=== PATIENT | female | born 1945 | race Caucasian/White ===

== ENCOUNTER 2019-04-16 17:54 | Inpatient (IN) ==
[2019-04-16] MEDS ORDERED: Ipratropium/Albuterol Neb 3 ML IH ONE (18:05)
[2019-04-16] MEDS ORDERED: methylPREDNISolone 125 MG/2 ML VIAL IVP ONE (18:05)
[2019-04-16] MEDS ORDERED: 0.9 % Sodium Chloride 500 ML IVC ONE ×2 (18:06→18:44)
--- NOTE | 2019-04-16 18:07 | Emergency Department Note ---
Disposition Clinical Impression: Transient hypotension Disposition: Still a Patient General Adult HPI - General Stated complaint: AMS Time Seen by Provider: 04/16/19 18:03 Source: patient, EMS Mode of arrival: EMS Limitations: no limitations Nursing Notes Reviewed: Yes Vital Signs Reviewed: Yes - History of Present Illness HPI Narrative: Attestation note: Patient was seen with the emergency medicine resident/nurse practitioner/physi annalisa physical therapy assistant instructor/transitional resident/medical student: Dr. Seth Mckeon I have personally performed a face to face evaluation on this patient. I have reviewed and agree with history and physical examination patient management and disposition. Briefly the salient points of the case are as follows: 73-year-old female resident of local prison facility brought in for "altered mental status and "low blood pressure and decreased ability care for self premenstrual (systolic was as low as 67 however when it was rechecked here was in the 130s. Patient is awake and alert tired but not somnolent appropriately answering questions and following commands. Patient will undergo ED workup looking for source of infection with admission anticipated. Disposition pending. - Related Data Home Medications Medication Instructions Recorded Confirmed Amlodipine [Norvasc] 5 mg PO DAILY 11/17/15 10/19/16 Ascorbic Acid [Vitamin C] 500 mg PO DAILY 11/17/15 10/19/16 Aspirin Enteric Coated [Aspirin EC] 81 mg PO DAILY 11/17/15 10/19/16 GlipiZIDE [Glucotrol] 10 mg PO DAILY 11/17/15 10/19/16 Levothyroxine [Synthroid] 50 mcg PO DAILY 11/17/15 10/19/16 Omeprazole [PriLOSEC] 20 mg PO DAILY 11/17/15 10/19/16 Potassium Chloride [Klor-Con 10 meq PO QID 11/17/15 10/19/16 Sprinkle] Raloxifene [Evista] 60 mg PO DAILY 11/17/15 10/19/16 Simvastatin [Zocor] 20 mg PO DAILY 11/17/15 10/19/16 Valsartan [Diovan] 80 mg PO DAILY 11/17/15 10/19/16 Venlafaxine HCl [Effexor Xr] 150 mg PO DAILY 11/17/15 10/19/16 Insulin Glargine [Lantus] 50 unit SQ HS 10/19/16 10/19/16 Previous Rx's Medication Instructions Recorded Oxycodone HCl/Acetaminophen 1 tab PO Q4H PRN #15 11/20/15 [Percocet 10-325 mg Tablet] clonazePAM [Klonopin] 2 mg PO HS #30 11/20/15 Insulin LISPRO [HumaLOG] 0 units SQ TIDAC #1 vial 07/02/16 Furosemide [Lasix] 40 mg PO BID #0 10/19/16 LORazepam [Lorazepam] 2 mg PO TID #1 tablet 10/19/16 Metoprolol [Lopressor] 25 mg PO BID tablet 10/19/16 Nitrofurantoin (BID) [Macrobid] 100 mg PO BID #14 capsule 03/24/17 Phenazopyridine HCl [Pyridium] 200 mg PO TID PRN #21 tablet 03/24/17 Allergies Allergy/AdvReac Type Severity Reaction Status Date / Time latex Allergy Rash Verified 10/18/16 12:13 Past Medical History - Past Medical History Medical history: Reports: COPD, coronary artery disease, diabetes, hyperlipidemia, hypertension, other Surgical history: Reports: hysterectomy, orthopedic, other Psychiatric history: Reports: no psych history - Social History Smoking Status: Never smoker Smokeless Tobacco Status: No Alcohol use: Reports: none Drug use: Reports: none
--- NOTE | 2019-04-16 18:31 | Emergency Department Note ---
Disposition Clinical Impression: Transient hypotension, Acute kidney injury, Pyelonephritis Disposition: Admitted As Inpatient Condition: Fair Forms: ED Satisfaction Letter Time of Disposition: 20:51 General Adult HPI - General Chief complaint: ED Shortness of Breath/Dyspnea Stated complaint: AMS Time Seen by Provider: 04/16/19 18:03 Source: patient, EMS Mode of arrival: EMS Limitations: no limitations Nursing Notes Reviewed: Yes Vital Signs Reviewed: Yes - History of Present Illness HPI Narrative: 73-year-old female presents to the emergency department from nursing facility for possible hypoxia difficulty in breathing low blood pressure and altered men ayah status. EMS said that they got a blood pressure in the 60s said that she seemed to be altered and so brought her here. Patient is not a fever. We will evaluate her patient is alert and oriented says she had a cough and congestion does have history of COPD. Patient says she has had cough and congestion. Said that she does have some neck pain but is been chronic for her. She does have any acute other signs of pain at this time. No other complaints. Pain Scale: 0 - Related Data Home Medications Medication Instructions Recorded Confirmed Amlodipine [Norvasc] 5 mg PO DAILY 11/17/15 10/19/16 Ascorbic Acid [Vitamin C] 500 mg PO DAILY 11/17/15 10/19/16 Aspirin Enteric Coated [Aspirin EC] 81 mg PO DAILY 11/17/15 10/19/16 GlipiZIDE [Glucotrol] 10 mg PO DAILY 11/17/15 10/19/16 Levothyroxine [Synthroid] 50 mcg PO DAILY 11/17/15 10/19/16 Omeprazole [PriLOSEC] 20 mg PO DAILY 11/17/15 10/19/16 Potassium Chloride [Klor-Con 10 meq PO QID 11/17/15 10/19/16 Sprinkle] Raloxifene [Evista] 60 mg PO DAILY 11/17/15 10/19/16 Simvastatin [Zocor] 20 mg PO DAILY 11/17/15 10/19/16 Valsartan [Diovan] 80 mg PO DAILY 11/17/15 10/19/16 Venlafaxine HCl [Effexor Xr] 150 mg PO DAILY 11/17/15 10/19/16 Insulin Glargine [Lantus] 50 unit SQ HS 10/19/16 10/19/16 Previous Rx's Medication Instructions Recorded Oxycodone HCl/Acetaminophen 1 tab PO Q4H PRN #15 11/20/15 [Percocet 10-325 mg Tablet] clonazePAM [Klonopin] 2 mg PO HS #30 11/20/15 Insulin LISPRO [HumaLOG] 0 units SQ TIDAC #1 vial 07/02/16 Furosemide [Lasix] 40 mg PO BID #0 10/19/16 LORazepam [Lorazepam] 2 mg PO TID #1 tablet 10/19/16 Metoprolol [Lopressor] 25 mg PO BID tablet 10/19/16 Nitrofurantoin (BID) [Macrobid] 100 mg PO BID #14 capsule 03/24/17 Phenazopyridine HCl [Pyridium] 200 mg PO TID PRN #21 tablet 03/24/17 Allergies Allergy/AdvReac Type Severity Reaction Status Date / Time latex Allergy Rash Verified 10/18/16 12:13 All systems ED: reviewed and negative except as stated. Past Medical History - Past Medical History Attestation: Yes The following information was validated with the patient. Source: patient Medical history: Reports: COPD, coronary artery disease, diabetes, hyperlipidemia, hypertension, other Surgical history: Reports: hysterectomy, orthopedic, other Psychiatric history: Reports: no psych history - Social History Smoking Status: Never smoker Smokeless Tobacco Status: No Alcohol use: Reports: none Drug use: Reports: none Physical Exam - General Limitations: no limitations General appearance: alert, in no apparent distress - Head Head exam: atraumatic, normocephalic, normal inspection - Eye Eye exam: Present: normal appearance, PERRL, EOMI - ENT ENT exam: normal exam, normal oropharynx, mucous membranes moist - Neck Neck exam: Present: normal inspection, full ROM, trachea midline - Chest Chest inspection: Present: normal inspection, symmetric chest wall rise. Absent: tenderness - Respiratory Respiratory exam: Present: normal lung sounds bilaterally, wheezes (And rhonchi bilaterally.). Absent: respiratory distress, accessory muscle use, prolonged expiratory phase - Cardiovascular Cardiovascular exam: Present: regular rate, normal rhythm, normal heart sounds - Abdominal Exam Abdominal exam: Present: soft, Non-Tender, normal bowel sounds. Absent: tenderness, distention, guarding, rebound, rigidity - Extremities Exam Extremities exam: Present: normal inspection, full ROM. Absent: tenderness, pedal edema - Back Exam Back exam: Present: normal inspection, full ROM. Absent: tenderness - Neurological Exam Neurological exam: Present: alert, oriented X3 - Expanded Neurological Exam Patient oriented to: Present: person, place, time Speech: Present: fluid speech Motor strength - LUE: 4/5 Motor strength - RUE: 4/5 Motor strength - LLE: 4/5 Motor strength - RLE: 4/5 Coma Scale Eye Opening: Spontaneous Coma Scale Motor Response: Obeys Commands Coma Scale Verbal Response: Oriented Coma Scale Total: 15 - Skin Skin exam: Present: warm, dry, intact, normal color Course Course Narrative: We will treat patient as possibly severe sepsis. Patient most likely has pneumonia. We will wait for source to give antibiotics. We will give patient IV fluids. She will see one whole liter of IV fluids. Patient was alert and oriented when I evaluated her blood pressure was 88/60. Patient is stable at this time. We will get CBC, BMP, blood cultures lactate EKG chest x-ray urinalysis via straight catheter. Patient okay with this plan. Disposition most likely his admission for further evaluation. She will also receive jaky kaur. - Consultations Consultation #1: Spoke with on-call nephrology Dr. Henry who agrees with the AK I thinks it secondary to patient's urinary tract infection recommended fluid bolus of 2 L which is arty being given as well as lactated Ringer's. Said they will consult with the patient if creatinine does not get better will consider dialysis within 24 hours. Time: 20:49 Vital Signs Temperature 97.8 F 04/16/19 18:13 Pulse Rate 78 04/16/19 18:13 Respiratory Rate 20 04/16/19 18:13 Blood Pressure 153/77 04/16/19 18:13 O2 Sat by Pulse Oximetry 92 04/16/19 18:13 Temperature 97.8 F 04/16/19 18:13 Pulse Rate 65 04/16/19 19:32 Respiratory Rate 20 04/16/19 19:32 Blood Pressure 100/69 04/16/19 20:35 O2 Sat by Pulse Oximetry 97 04/16/19 19:32 Oxygen Delivery Oxygen Delivery Room Air Medical Decision Making - MDM Narrative Medical decision making narrative: Any 3.-year-old patient presents here with altered mental status. When I evaluated her she was alert and oriented 3. Blood pressures were mildly labile did give her IV fluids and she responded well. She received a total of 2 L of IV fluids. Diagnosis at this times can be acute kidney injury secondary to urinary tract infection. Patient was given ceftriaxone. I did give patient IV fluids. Patient negative lactate. She did have an elevated troponin there were no EKG changes I believe this is secondary to the acute kidney injury. Did give patient aspirin will hold off on giving heparin at this time. Patient otherwise is not having any other complaints at this time. Her blood pressure responded well to the IV fluids. I do feel patient needs to be admitted to the hospital service for further evaluation. I spoke with Dr. Jaquez who agreed to admit the patient at this time. Patient admitted in stable condition. He did request a CT of the abdomen and pelvis to be sure there is no hydronephrosis or kidney stone this is ordered and pending at this time. Chest X-Ray 04/16/19 18:04 IMPRESSION: No radiographic evidence of acute cardiopulmonary process. Left basilar pulmonary opacities are most compatible with atelectasis, and/or scarring. D/ / 04/16/2019 19:18:03 Warren Sloan MD / Sandee Cordon Interpreting Provider: Warren Sloan MD - Medical Records Medical records reviewed: Yes I reviewed the patient's medical records. - Lab Data Lab results reviewed: Yes I reviewed the patient's lab results. Result diagrams: 04/16/19 18:33 04/16/19 18:33 Lab Results 04/16/19 04/16/19 04/16/19 Range/Units 18:31 18:33 18:33 WBC 9.1 (4.3-11.1) K/mcL RBC 5.27 H (3.82-4.97) M/mcL Hgb 14.3 (11.5-15.4) g/dL Hct 47.2 H (35.3-44.9) % MCV 89.6 (83.0-100.0) fL MCH 27.1 L (28.0-33.3) pg MCHC 30.3 L (31.6-35.5) g/dL RDW 14.3 (11.5-14.5) % Plt Count 329 (140-400) K/mcL MPV 11.4 (9.4-12.4) fL Immature Gran % 0.2 (0-4) % Seg Neutrophils % 70.0 % Lymphocytes % 20.9 % Monocytes % 6.5 % Eosinophils % 1.9 % Basophils % 0.5 % Neutrophils # 6.4 (1.6-8.9) K/mcL Lymphocytes # 1.9 (0.6-4.6) K/mcL Monocytes # 0.6 (0.0-1.3) K/mcL Eosinophils # 0.2 (0.0-0.6) K/mcL Basophils # 0.1 (0.0-0.2) K/mcL Sodium 135 L (136-145) mEq/L Potassium 3.3 L (3.5-5.1) mEq/L Chloride 82 L (98-107) mEq/L Carbon Dioxide 35 H (23-29) mEq/L BUN 86 H (8-23) mg/dL Creatinine 3.73 H (0.60-1.20) mg/dL Est GFR ( Amer) 15 L (> 60) Est GFR (Non-Af Amer) 12 L (> 60) BUN/Creatinine Ratio 23 (6-26) Glucose 96 (70-105) mg/dL Calculated Osmolality 306 H (280-300) Lactic Acid (0.5-2.2) mmol/L Calcium 9.7 (8.6-10.3) mg/dL Troponin I 0.43 H* (< 0.04) ng/mL B-Natriuretic Peptide 14 (Less than 100) pg/mL Urine Color (Yellow) Urine Clarity (Clear) Urine pH (5.0-8.0) pH Units Ur Specific Anthony (1.010-1.025) Urine Protein (Neg-Trace) mg/dL Urine Glucose (UA) (Normal) mg/dL Urine Ketones (Negative) mg/dL Urine Blood (Negative) Urine Nitrite (Negative) Urine Bilirubin (Negative) Urine Urobilinogen (Normal) mg/dL Ur Leukocyte Esterase (Negative) Urine Microscopic RBC (0-3) per hpf Urine Microscopic WBC (0-3) per hpf Ur Squamous Epith Cells (None-Few) per lpf Urine Bacteria (None-Few) per hpf Hyaline Casts (None-Few) per lpf Ur Culture Indicated? (NO) 05/19/19 05/19/19 Range/Units 18:33 19:28 WBC (4.3-11.1) K/mcL RBC (3.82-4.97) M/mcL Hgb (11.5-15.4) g/dL Hct (35.3-44.9) % MCV (83.0-100.0) fL MCH (28.0-33.3) pg MCHC (31.6-35.5) g/dL RDW (11.5-14.5) % Plt Count (140-400) K/mcL MPV (9.4-12.4) fL Immature Gran % (0-4) % Seg Neutrophils % % Lymphocytes % % Monocytes % % Eosinophils % % Basophils % % Neutrophils # (1.6-8.9) K/mcL Lymphocytes # (0.6-4.6) K/mcL Monocytes # (0.0-1.3) K/mcL Eosinophils # (0.0-0.6) K/mcL Basophils # (0.0-0.2) K/mcL Sodium (136-145) mEq/L Potassium (3.5-5.1) mEq/L Chloride (98-107) mEq/L Carbon Dioxide (23-29) mEq/L BUN (8-23) mg/dL Creatinine (0.60-1.20) mg/dL Est GFR ( Amer) (> 60) Est GFR (Non-Af Amer) (> 60) BUN/Creatinine Ratio (6-26) Glucose (70-105) mg/dL Calculated Osmolality (280-300) Lactic Acid 1.6 (0.5-2.2) mmol/L Calcium (8.6-10.3) mg/dL Troponin I (< 0.04) ng/mL B-Natriuretic Peptide (Less than 100) pg/mL Urine Color Yellow (Yellow) Urine Clarity Turbid A (Clear) Urine pH 5.5 (5.0-8.0) pH Units Ur Specific Anthony 1.015 (1.010-1.025) Urine Protein 30 H (Neg-Trace) mg/dL Urine Glucose (UA) Normal (Normal) mg/dL Urine Ketones Trace H (Negative) mg/dL Urine Blood Negative (Negative) Urine Nitrite Negative (Negative) Urine Bilirubin Small H (Negative) Urine Urobilinogen Normal (Normal) mg/dL Ur Leukocyte Esterase Large H (Negative) Urine Microscopic RBC 3-5 H (0-3) per hpf Urine Microscopic WBC TNTC H (0-3) per hpf Ur Squamous Epith Cells Many H (None-Few) per lpf Urine Bacteria Many H (None-Few) per hpf Hyaline Casts Few (None-Few) per lpf Ur Culture Indicated? YES A (NO) - Radiology Data Radiology results reviewed: Yes I reviewed the patient's radiology results. - EKG Data EKG #1 EKG attestation: Yes I reviewed and interpreted this EKG.
[2019-04-16] MEDS ORDERED: 0.9 % Sodium Chloride 500 ML ONE (18:45)
[2019-04-16 18:49] LABS: Basophils # 0.1 K/mcL (0.0-0.2); Basophils % 0.5 %; Eosinophils # 0.2 K/mcL (0.0-0.6); Eosinophils % 1.9 %; Hematocrit 47.2 % (35.3-44.9); Hemoglobin 14.3 g/dL (11.5-15.4); Immature Granulocytes % 0.2 % (0-4); Lymphocytes # 1.9 K/mcL (0.6-4.6); Lymphocytes % 20.9 %; Mean Corpuscular HGB Conc 30.3 g/dL (31.6-35.5); Mean Corpuscular Hemoglobin 27.1 pg (28.0-33.3); Mean Corpuscular Volume 89.6 fL (83.0-100.0); Mean Platelet Volume 11.4 fL (9.4-12.4); Monocytes # 0.6 K/mcL (0.0-1.3); Monocytes % 6.5 %; Neutrophils # 6.4 K/mcL (1.6-8.9); Platelet Count 329 K/mcL (140-400); Red Blood Count 5.27 M/mcL (3.82-4.97); Red Cell Distribution Width 14.3 % (11.5-14.5)
[2019-04-16 19:07] LABS: Calcium 9.7 mg/dL (8.6-10.3); Potassium 3.3 mEq/L (3.5-5.1)
[2019-04-16 19:11] LABS: Troponin I 0.43 ng/mL (< 0.04)
[2019-04-16] MEDS ORDERED: 0.9 % Sodium Chloride 1,000 ML IVC ONE (19:21)
[2019-04-16 19:44] LABS: Bilirubin,Urine Small (Negative); Blood,Urine Negative (Negative); Clarity,Urine Turbid (Clear); Color,Urine Yellow (Yellow); Glucose,Urine (UA) Normal (Normal); Ketones,Urine Trace mg/dL (Negative); Leukocyte Esterase,Urine Large (Negative); Nitrite,Urine Negative (Negative); PH,Urine 5.5 pH Units (5.0-8.0); Protein,Urine 30 mg/dL (Neg-Trace); Specific Gravity,Urine 1.015 (1.010-1.025); Urobilinogen,Urine Normal (Normal)
[2019-04-16 19:46] LABS: Bacteria,Urine Many per hpf (None-Few); Hyaline Casts,Urine Few per lpf (None-Few); Squamous Epithelial Cell,Urine Many per lpf (None-Few); WBC,Urine TNTC per hpf (0-3)
[2019-04-16] MEDS ORDERED: cefTRIAXone 1,000 MG in Water for inj. (sterile) 20 ML 10 ML IVP ONE (20:02)
[2019-04-16] MEDS: Ringers Solution, Lactated 1,000 ML IVC SCH (20:51)
[2019-04-16] MEDS ORDERED: Naloxone 0.4 MG/ML INJ IVP PRN (22:15)
[2019-04-16] MEDS: *HR* OxyCODONE/APAP 10/325 TABLET PO SCH (23:53)
[2019-04-16] MEDS: *HR* Heparin 5,000 UNIT/ML VIAL SQ SCH (23:54)
[2019-04-17 00:29] LABS: Calcium 8.8 mg/dL (8.6-10.3); Potassium 3.4 mEq/L (3.5-5.1)
[2019-04-17 01:37] LABS: Troponin I 0.26 ng/mL (< 0.04)
[2019-04-17] MEDS ORDERED: D5% in Water 1,000 ML IVC PRN (02:46)
[2019-04-17] MEDS ORDERED: *HR* Dextrose 50 % in Water (Syg) 50 ML SYRINGE IVP PRN (02:46)
[2019-04-17] MEDS ORDERED: Dextrose Gel 15 GM/37.5 ML TUBE PO PRN ×2 (02:46)
--- NOTE | 2019-04-17 02:51 | Internal Med History&Physical ---
Date of Encounter: 04/17/19 Time of Encounter: 02:48 Internal Medicine - H&P: HPI Chief complaint: AMS History of present illness: Ms. Colbert is a 73 year old female with a past medical history of COPD, coronary artery disease, diabetes, hyperlipidemia and hypertension who presented to the ED from her assisted living facility with reports of hypoxia, hypotension and altered mental status. Per EMS report, they had obtained a blood pressure in the 60s. Patient reports that she has not been feeling well for the past 3 days associated with nausea and one episode of non-bloody nonbilious emesis occurring today. Patient states she has not been eating or drinking very much due to decreased appetite. Patient reportedly hypoxic at her assisted living facility with reports of fever, however denies any fever, chills or cough. She is currently on 2 L home oxygen at night though states that she has been noncompliant at times. No reports of SOB, chest pain, abdominal pain or diarrhea. On arrival patient's blood pressure was found to be initially running soft with a systolic in the upper 80s to 90s. Patient was not tachycardic. Afebrile. She is on a beta marii. Patient received 3 L of fluid bolus in the ED with good response in blood pressure. Laboratory workup notable for a white blood cell count of 9.1 which appears to be elevated in comparison to previous measurement. Labs also notable for a creatinine of 3.73 and troponin of 0.43. Patient did not endorse any chest pain and EKG was unchanged from previous EKG without any ischemic changes. Chest x-ray was unremarkable. A CT of the abdomen and pelvis was obtained which did not show any evidence of hydronephrosis or nephrolithiasis. Urinalysis suggestive of UTI. Patient started on ceftriaxone for possible UTI. On my assessment patient was lying in bed in no acute distress. She was alert and oriented 2-3. Currently reporting pain which appears to be chronic. Past Med Surg Social Fam HX - Past Medical History Medical history: COPD, coronary artery disease, diabetes, hyperlipidemia, hypertension, other Additional medical history: neuropathy Psychiatric history: no psych history - Past Surgical History Surgical History: hysterectomy, orthopedic, other Additional surgical history: wisdom teeth removal, exploratory lap. - Social History Smoking Status: Never smoker Smokeless Tobacco Status: No Alcohol use: none Drug use: none - Family History Mother Adopted: No Living Status: Hx Family Cardiac Disorders: Yes ([place]) Hx Family Endocrine Disorder: Yes (Diabetes) Father Adopted: No Living Status: Still Living Hx Family Cardiac Disorders: Yes (HTN) Hx Family Endocrine Disorder: Yes (DM) Internal Medicine - H&P: Meds Aspirin Enteric Coated [Aspirin EC] 81 mg PO DAILY 11/17/15 [History] Ascorbic Acid [Vitamin C with Izabela Hips] 500 mg PO DAILY 04/16/19 [History] Bumetanide 4 mg PO DAILY 04/16/19 [History] Furosemide [Lasix] 40 mg PO TID 04/16/19 [History] Gabapentin 600 mg PO QID 04/16/19 [History] Insulin Glargine,Hum.rec.anlog [Basaglar Kwikpen U-100] 55 unit SQ HS 04/16/19 [History] LORazepam [Ativan] 0.5 mg PO QID 04/16/19 [History] Levothyroxine Sodium 50 mcg PO DAILY 04/16/19 [History] Metoprolol [Lopressor] 25 mg PO BID 04/16/19 [History] Nitroglycerin [Nitrostat] 0.4 mg SL AD PRN 04/16/19 [History] Nystatin POWDER [Nystop] 1 appl TP BID 04/16/19 [History] Omeprazole [PriLOSEC] 20 mg PO DAILY 04/16/19 [History] OxyCODONE/APAP 10/325 [Percocet 10/325 MG] 1 each PO Q4HR 04/16/19 [History] Potassium Chloride [Klor-Con 10] 10 meq PO QID 04/16/19 [History] Raloxifene [Evista] 60 mg PO DAILY 04/16/19 [History] Simvastatin [Zocor] 20 mg PO HS 04/16/19 [History] Valsartan [Diovan] 80 mg PO DAILY 04/16/19 [History] Venlafaxine HCl [Venlafaxine HCl ER] 150 mg PO DAILY@1200 04/16/19 [History] amLODIPine [Norvasc] 5 mg PO DAILY 04/16/19 [History] glipiZIDE [Glipizide] 10 mg PO DAILY 04/16/19 [History] metOLazone [Zaroxolyn] 5 mg PO DAILY 04/16/19 [History] Allergy/AdvReac Type Severity Reaction Status Date / Time latex Allergy Rash Verified 10/18/16 12:13 All Systems PM: A 10-system review of systems was performed and is negative for pertinent findings except as documented above in the HPI. - Constitutional Constitutional: no chills, no fever(s), no night sweats - EENT Eyes: no change in vision, no discharge, no pain, no photophobia Ears: no ear discharge, no ear pain, no tinnitus Nose, mouth and throat: no dysphagia, no nasal discharge, no neck pain, no sore throat - Cardiovascular Cardiovascular ROS IM: no chest pain, no diaphoresis, no dyspnea, no lightheadedness, no palpitations, no syncope - Respiratory Respiratory: no cough, no dyspnea, no wheezing, no excessive phlegm production - Gastrointestinal Gastrointestinal: no abdominal pain, no diarrhea, no hematemesis, no hematochezia, no melena, no nausea, no vomiting - Genitourinary Genitourinary: no change in urinary stream, no dysuria, no flank pain, no hematuria - Musculoskeletal Musculoskeletal ROS IM: no numbness, no tingling - Integumentary Integumentary IM: no rash, no unusual bruising - Neurological Neurological ROS: no confusion, no convulsions, no focal weakness, no numbness, no tingling, no tremor(s) - Hematologic/Lymphatic Hematologic/Lymphatic: no easy bruising - Constitutional Vitals: Temp Pulse Resp BP Pulse Ox 97.6 F 74 20 121/71 96 04/16/19 22:50 04/16/19 22:50 04/16/19 22:50 04/16/19 22:50 04/16/19 22:50 Exam: General: Alert and oriented 2 to 3 Skin:Normal color, no rash, no lesions. HEENT:EOM, pupils equal, round and reactive. Cardiovascular:Normal S1 & S2, no rubs, murmurs or gallops. No JVD. Pulse regular. Lungs:Normal breath sounds, no wheezes or crackles. Abdomen:Soft, non-tender, no rigidity. Extremities:No deformity, no edema or tenderness, no joint swelling or clubbing. Neurological:Normal cognition and motor skills. Pulses:Carotid and radial pulses normal +2. Rest of the physical exam is non contributory Internal Med - H&P Results - Labs CBC & Chem 7: 04/16/19 18:33 04/16/19 23:52 Labs: Short CBC 04/16/19 Range/Units 18:33 WBC 9.1 (4.3-11.1) K/mcL Hgb 14.3 (11.5-15.4) g/dL Hct 47.2 H (35.3-44.9) % Plt Count 329 (140-400) K/mcL Neutrophils # 6.4 (1.6-8.9) K/mcL BMP 04/16/19 04/16/19 18:33 23:52 Sodium 135 L 136 Potassium 3.3 L 3.4 L Chloride 82 L 89 L Carbon Dioxide 35 H 32 H BUN 86 H 82 H Creatinine 3.73 H 2.85 H Glucose 96 126 H Calcium 9.7 8.8 Cardiac Enzymes 04/16/19 04/16/19 Range/Units 18:33 23:52 Troponin I 0.43 H* 0.26 H* (< 0.04) ng/mL Urine 04/16/19 Range/Units 19:28 Urine Color Yellow (Yellow) Urine Clarity Turbid A (Clear) Urine pH 5.5 (5.0-8.0) pH Units Ur Specific [place] 1.015 (1.010-1.025) Urine Protein 30 H (Neg-Trace) mg/dL Urine Glucose (UA) Normal (Normal) mg/dL - Impressions ITS Impressions Chest X-Ray 04/16/19 18:04 IMPRESSION: 1. No radiographic evidence of acute cardiopulmonary process. 2. Left basilar pulmonary opacities are most compatible with atelectasis, and/or scarring. D/ / 04/16/2019 19:18:03 Warren Sloan MD / Sandee Cordon Interpreting Provider: Warren Sloan MD Abdomen/Pelvis CT 04/16/19 19:48 IMPRESSION: 1. No acute process 2. No obstructive uropathy 3. Duodenal and colonic diverticulosis 4. Status post cholecystectomy and hysterectomy D/ / Chris Kaiser MD / Chris Kaiser MD Interpreting Provider: Chris Kaiser MD - Assessment and Plan (1) Acute encephalopathy Current Visit: Yes Status: Acute Assessment and plan: Transient acute encephalopathy likely secondary to UTI and uremia in the setting of MAGED. No focal deficits. CT scan of the head was not performed in the ED as patient appeared to be back to her baseline. Has history of previous admissions for altered mental status in the past and had been history to hypercapnia. We will check an ABG. We will continue treatment of underlying cause with antibiotics and fluid support. (2) Acute kidney injury Current Visit: Yes Status: Acute Assessment and plan: Acute kidney injury likely secondary prerenal in the setting of patient reported decreased PO intake for the past 3 days and one episode of vomiting today. In addition patient is continuing to take her Lasix, valsartan, and metolazone. Patient also has Bumex reconciled in her medication list. Discussed with pharmacy and it appears based on prescription refill history that patient is getting both medications refilled but it is unclear if she is alternating back and forth her taking both concomitantly. This will need to be verified at her assisted living facility. Patient received 3 L of fluid boluses in the ED. Furthermore, CT scan of the abdomen and pelvis shows no evidence of hydronephrosis or obstructing stone. Repeat metabolic panel shows improvement in creatinine. Case was discussed with nephrology who recommended transitioning to lactated Ringer's. We will continue fluids and monitor urine/creatinine. If creatinine does not continue to trend down, consider renal ultrasound, urine studies; will consult nephrology. (3) UTI (urinary tract infection) Current Visit: No Status: Acute Assessment and plan: UA shows large leukocyte esterase and numerous WBCs. Urine and blood cultures were obtained. Patient received one-time dose of ceftriaxone in the ED. Continue antibiotics. Follow-up blood and urine cultures. Qualifiers: Urinary tract infection type: acute cystitis Hematuria presence: without hematuria Qualified Code(s): N30.00 - Acute cystitis without hematuria (4) Diabetes Current Visit: No Status: Acute Assessment and plan: Blood glucose checks. Sliding scale insulin. Qualifiers: Diabetes mellitus type: type 2 Diabetes mellitus assisted insulin use: with assistant terminal manager use Diabetes mellitus complication status: with hyperglycemia Qualified Code(s): E11.65 - Type 2 diabetes mellitus with hyperglycemia; Z79.4 - middle or intermediate school principal (current) use of insulin (5) Elevated troponin Current Visit: Yes Status: Acute Assessment and plan: Patient found to have a elevated troponin of 0.43. She does have a prior history of coronary artery disease. Though denies any recent chest pain and EKG findings were unremarkable. Possibly secondary to her MAGED. She received loading dose of aspirin in the ED We will continue to trend and monitor on telemetry. (6) CAD (coronary artery disease) Current Visit: No Status: Chronic Assessment and plan: Reported show minimal nonobstructive coronary artery disease per left heart catheter in 2013. She denies any chest pain. No ischemic changes noted on EKG. Continue medical management with aspirin, statin and beta marii. We will hold ARB for now due to kidney injury. Qualifiers: Coronary Disease-Associated Artery/Lesion type: [place] artery [place] vs. t ransplanted heart: [place] heart Associated angina: without angina Qualified Code(s): I25.10 - Atherosclerotic heart disease of [place] coronary artery without angina pectoris (7) COPD (chronic obstructive pulmonary disease) Current Visit: No Status: Chronic Assessment and plan: History of COPD on home oxygen at night 2 L. No evidence of an acute exacerbation. Qualifiers: COPD type: chronic bronchitis Chronic bronchitis type: simple Qualified Code(s): J41.0 - Simple chronic bronchitis (8) DVT prophylaxis Current Visit: No Status: Acute - Time Spent With Patient Total time spent is greater than 50% in coordination of care (as documented) at patient's floor/unit and/or counseling patient:
[2019-04-17 04:46] LABS: ABG Base Excess 8 mEq/L (-2 to 3); ABG HCO3 35 mEq/L (21-27); ABG Oxygen Saturation 88 % (95-98); ABG PCO2 54 mmHg (35-45); ABG PH 7.42 pH Units (7.32-7.45); ABG PO2 55 mmHg (85-104); ABG TCO2 36 mEq/L (20-26)
[2019-04-17] MEDS: *HR* OxyCODONE/APAP 10/325 TABLET PO SCH ×3 (04:50→12:15)
[2019-04-17] MEDS: *HR* Heparin 5,000 UNIT/ML VIAL SQ SCH ×3 (05:30→21:04)
[2019-04-17] MEDS: Ringers Solution, Lactated 1,000 ML IVC SCH ×2 (06:18→14:31)
[2019-04-17 07:07] LABS: Basophils % 0.2 %; Hematocrit 45.1 % (35.3-44.9); Hemoglobin 13.6 g/dL (11.5-15.4); Immature Granulocytes % 0.3 % (0-4); Lymphocytes # 0.8 K/mcL (0.6-4.6); Lymphocytes % 12.4 %; Mean Corpuscular HGB Conc 30.2 g/dL (31.6-35.5); Mean Corpuscular Hemoglobin 27.3 pg (28.0-33.3); Mean Corpuscular Volume 90.4 fL (83.0-100.0); Mean Platelet Volume 11.1 fL (9.4-12.4); Monocytes # 0.1 K/mcL (0.0-1.3); Monocytes % 0.9 %; Neutrophils # 5.5 K/mcL (1.6-8.9); Platelet Count 260 K/mcL (140-400); Red Blood Count 4.99 M/mcL (3.82-4.97); Segmented Neutrophils % 86.2 %
[2019-04-17 07:16] LABS: Prothrombin Time 11.7 Seconds (9.4-12.1)
[2019-04-17 07:18] LABS: Activated Partial Thrombo Time 28.7 Seconds (26.0-36.0)
[2019-04-17 07:34] LABS: Albumin 3.5 g/dL (3.5-5.7); Albumin/Globulin Ratio 1.1 (1.1-2.2); Bilirubin,Total 0.5 mg/dL (0.3-1.0); Calcium 9.1 mg/dL (8.6-10.3); Globulin 3.1 g/dL (2.4-3.5); Magnesium 1.8 mg/dL (1.6-2.6); Phosphorous 5.6 mg/dL (2.7-4.5); Potassium 3.4 mEq/L (3.5-5.1); Total Protein 6.6 g/dL (6.4-8.9)
--- NOTE | 2019-04-17 08:35 | Event Note ---
Date of Encounter: 04/17/19 Time of Encounter: 08:35 Patient seen and examined this morning. Admitted overnight. Awake alert and oriented. Denies any difficulty breathing chest pain abdominal pain bowel or urinary complaints. Appetite improved. General: In no acute distress. Respiratory exam: CTAB. no accessory muscle use, rales, rhonchi, wheezes Cardiovascular exam: RRR, +S1, +S2. no murmur, gallop, rubs. GI/Abdominal exam: Non-tender, Non-distended, normal bowel sounds, soft, no peritoneal signs. Extremities exam: no pedal edema, pulses palpable in b/l lower extremities. no calf tenderness Neurological exam: CN II-XII intact, AO X3, no focal deficits. Skin exam: No skin rash A/P - A likely prerenal. Continue IV LR ar 125 cc. Received 3 L in ER. No evidence of obstruction on CT. Hold ARB for now. Renal function improving. Nephrology consulted. - Continue empiric ceftriaxone for UTI. Follow blood and urine culture. - Troponin elevated with prior CAD history along with MAGED. Now downtrending. Likely demand ischemia. Continue aspirin and statin and beta marii. - Continue with when necessary bronchodilators,
[2019-04-17] MEDS ORDERED: Bumetanide 1 MG TABLET PO SCH (09:00)
--- NOTE | 2019-04-17 10:24 | Electrocardiograph Report ---
[place] [id number] Test Date: 2019-04-16 Pat Name: Ebony Colbert Department: EXAM7 Room: 2NE34 Gender: F Bar Examiner: : 1945 Requested By: Seth Mckeon Order Number: [id number] Reading MD: Quentin Mancini Measurements Intervals [place] Rate: 68 P: 30 MO: 171 QRS: -32 QRSD: 101 T: -18 QT: 449 QTc: 478 Interpretive Statements Sinus rhythm Inferior infarct, age indeterminate Poor R wave progression Electronically Signed On 04-17-2019 10:23:02 EDT by Quentin Mancini
[2019-04-17] MEDS: Insulin LISPRO 300 UNITS/3 ML VIAL SQ SCH ×3 (10:37→17:00)
[2019-04-17] MEDS: Gabapentin 300 MG CAPSULE PO SCH ×4 (10:38→21:06)
[2019-04-17] MEDS: Aspirin Enteric Coated 81 MG Tablet PO SCH (10:38)
[2019-04-17] MEDS: Ascorbic Acid 500 MG TABLET PO SCH (10:39)
[2019-04-17] MEDS: Nystatin POWDER 30 GM BOTTLE TP SCH ×2 (10:39→21:08)
[2019-04-17] MEDS: Venlafaxine XR (24 HR) 150 MG CAP.ER.24H PO SCH (12:17)
--- NOTE | 2019-04-17 13:00 | Nephrology Consult Note ---
Date of Encounter: 04/17/19 Time of Encounter: 09:20 Assessment and Plan (1) Acute kidney injury Current Visit: Yes Status: Acute Most likely prerenal setting due to decreased PO intake, episodes of vomiting, and UTI. Patient on Lasix, valsartan, and metolazone at home. Also on Bumex. Patient received 3 L of fluid boluses in the ED. Furthermore, CT scan of the abdomen and pelvis shows no evidence of hydronephrosis or obstructing stone. Cr eatinine continues to improve with IVF (lactated ringers). - Continue IV lactated ringers fluid. - Avoid nephrotoxins. - Hold bumex, lasix, ARB for now as renal function improves. (2) Acute encephalopathy Current Visit: Yes Status: Resolved Secondary to UTI and uremia in setting of MAGED. Patient was A&Ox3 today. (3) CAD (coronary artery disease) Current Visit: No Status: Chronic Qualifiers: Coronary Disease-Associated Artery/Lesion type: [place] artery [place] vs. transplanted heart: [place] heart Associated angina: without angina Qualified Code(s): I25.10 - Atherosclerotic heart disease of [place] coronary artery without angina pectoris (4) COPD (chronic obstructive pulmonary disease) Current Visit: No Status: Chronic Qualifiers: COPD type: chronic bronchitis Chronic bronchitis type: simple Qualified Code(s): J41.0 - Simple chronic bronchitis (5) Diabetes mellitus type 2 with complications Current Visit: No Status: Chronic Qualifiers: Diabetes mellitus parts counterman insulin use: with assisted use Qualified Code(s): E11.8 - Type 2 diabetes mellitus with unspecified complications; Z79.4 - termite control service representative (current) use of insulin History of Present Illness - Chief Complaint AMS - History of Present Illness Patient is a 73 YO F with a PMH of COPD, coronary artery disease, diabetes, hyperlipidemia and hypertension who presented to the ED from her assisted living facility with reports of hypoxia, hypotension and altered mental status. Reports 3 days associated with nausea and one episode of non-bloody nonbilious emesis. Decreased PO intake due to decreased appetite. No fever, chills or cough. On 2 L home oxygen at night though states that she has been noncompliant at times. No reports of SOB, chest pain, abdominal pain or diarrhea. Upon arrival, SBP was in the 80s-90s. She was non-tachy and afebrile. BP responded well to IVF. Creatinine of 3.73 and troponin of 0.43. Patient did not endorse any chest pain and EKG was unchanged from previous EKG without any ischemic changes. Chest x- ray was unremarkable. A CT of the abdomen and pelvis was obtained which did not show any evidence of hydronephrosis or nephrolithiasis. Urinalysis suggestive of UTI. Patient started on ceftriaxone for possible UTI. Nephrology consulted for MAGED. When seen this morning, patient was alert and oriented x 3. She says that overall she feels better than when she was admitted. She denies any abdominal pain. Still admits to some nausea, but says that has improved. Denies any vomiting. Denies any abdominal pain. Denies any dysuria or gross hematuria. Denies any fever, chest pain, or SOB. Past Med Surg Social Fam HX - Past Medical History Medical history: COPD, coronary artery disease, diabetes, hyperlipidemia, hypertension, other Additional medical history: neuropathy Psychiatric history: no psych history - Past Surgical History Surgical History: hysterectomy, orthopedic, other Additional surgical history: wisdom teeth removal, exploratory lap. - Social History Smoking Status: Never smoker Smokeless Tobacco Status: No Alcohol use: none Drug use: none - Family History Mother Adopted: No Living Status: Hx Family Cardiac Disorders: Yes ([place]) Hx Family Endocrine Disorder: Yes (Diabetes) Father Adopted: No Living Status: Still Living Hx Family Cardiac Disorders: Yes (HTN) Hx Family Endocrine Disorder: Yes (DM) Medications and Allergies Aspirin Enteric Coated [Aspirin EC] 81 mg PO DAILY 11/17/15 [History] Ascorbic Acid [Vitamin C with Izabela Hips] 500 mg PO DAILY 04/16/19 [History] Bumetanide 4 mg PO DAILY 04/16/19 [History] Furosemide [Lasix] 40 mg PO TID 04/16/19 [History] Gabapentin 600 mg PO QID 04/16/19 [History] Insulin Glargine,Hum.rec.anlog [Basaglar Kwikpen U-100] 55 unit SQ HS 04/16/19 [History] LORazepam [Ativan] 0.5 mg PO QID 04/16/19 [History] Levothyroxine Sodium 50 mcg PO DAILY 04/16/19 [History] Metoprolol [Lopressor] 25 mg PO BID 04/16/19 [History] Nitroglycerin [Nitrostat] 0.4 mg SL AD PRN 04/16/19 [History] Nystatin POWDER [Nystop] 1 appl TP BID 04/16/19 [History] Omeprazole [PriLOSEC] 20 mg PO DAILY 04/16/19 [History] OxyCODONE/APAP 10/325 [Percocet 10/325 MG] 1 each PO Q4HR 04/16/19 [History] Potassium Chloride [Klor-Con 10] 10 meq PO QID 04/16/19 [History] Raloxifene [Evista] 60 mg PO DAILY 04/16/19 [History] Simvastatin [Zocor] 20 mg PO HS 04/16/19 [History] Valsartan [Diovan] 80 mg PO DAILY 04/16/19 [History] Venlafaxine HCl [Venlafaxine HCl ER] 150 mg PO DAILY@1200 04/16/19 [History] amLODIPine [Norvasc] 5 mg PO DAILY 04/16/19 [History] glipiZIDE [Glipizide] 10 mg PO DAILY 04/16/19 [History] metOLazone [Zaroxolyn] 5 mg PO DAILY 04/16/19 [History] Allergy/AdvReac Type Severity Reaction Status Date / Time latex Allergy Rash Verified 10/18/16 12:13 Review of Systems Constitutional: excessive sweating, weight loss, no fever(s) Cardiovascular: no chest pain, no dyspnea, no edema, no leg edema, no pedal [place] ma Respiratory: no dyspnea Gastrointestinal: nausea, no abdominal pain, no vomiting Genitourinary Female: no dysuria Neurological: no dizziness Exam - Vital Signs Vital signs: Initial Vital Signs Temp Pulse Resp BP Pulse Ox 97.8 F 78 20 153/77 92 04/16/19 18:13 04/16/19 18:13 04/16/19 18:13 04/16/19 18:13 04/16/19 18:13 Vital Signs - Last 8 Hours Temp Pulse Resp BP Pulse Ox 04/17/19 11:52 94 04/17/19 10:41 98 F 65 19 106/53 94 04/17/19 06:52 98.4 F 65 17 102/60 93 Intake and Output 04/16/19 04/17/19 04/17/19 23:59 07:59 15:59 Intake Total 2009 1000 / 1240 240 / 1240 Balance 2009 1000 / 1240 240 / 1240 Intake: IV Fluids 2009 1000 / 1000 0.9 % Sodium Chloride 1,000 ML 1000 / 1000 @ 999 mls/hr IVC .Q1H1M ONE Rx# :[id number] 0.9 % Sodium Chloride 500 ML @ 1000 / 1000 999 mls/hr IVC .Q31M ONE Rx#: [id number] Lactated Ringers 1,000 ML @ 125 1000 / 1000 mls/hr IVC .Q8H TERESA Rx#: [id number] Rocephin 1,000 MG In Water for inj. (sterile) 10 ML @ 600 mls/ hr IVP ONCE ONE Rx#:[id number] Oral 240 / 240 Other: Meal Breakfast Percent of Meal Consumed 95% # Voids 1 # Urine Diapers 1 Weight 98.5 kg Blood Glucose* 200 204 - General Appearance General appearance: appears started age, obese EENT: mucous membranes moist Neck: no JVD Respiratory: clear Cardiology: no murmurs, no rub, no gallops, no edema, regular rate, regular rhythm, normal S1, normal S2 Gastrointestinal: normoactive bowel sounds, tenderness (Suprapubic pain b/l with deep palpation), no guarding, no organomegaly, no masses Integumentary: no rash, warm and dry Neurologic: no focal deficit, alert and oriented x3 Musculoskeletal: no deformities, no erythema, no cyanosis, no clubbing Additional Comments: Tenderness to palpation of LE b/l. Negative Thiago's sign. Psychiatric: mood/affect appropriate, cooperative Results - Lab Results 04/17/19 06:48 04/17/19 06:48 Most recent lab results 04/17/19 04/17/19 04:43 06:48 ABG pH 7.42 ABG pCO2 54 H ABG pO2 55 L ABG HCO3 35 H ABG O2 Saturation 88 L Calcium 9.1 Phosphorus 5.6 H Magnesium 1.8 Consult Discharge Plan - Plan Referrals: Rafa Segovia Jr, MD [Primary Care Provider] -
[2019-04-17] MEDS ORDERED: Ringers Solution, Lactated 1,000 ML IVC SCH (15:36)
[2019-04-17] MEDS: *HR* OxyCODONE/APAP 10/325 TABLET PO PRN (17:00)
[2019-04-17] MEDS: cefTRIAXone 1,000 MG in Water for inj. (sterile) 20 ML 10 ML IVPB SCH (21:08)
[2019-04-18] MEDS: *HR* OxyCODONE/APAP 10/325 TABLET PO PRN ×2 (00:12→05:22)
[2019-04-18] MEDS: *HR* Heparin 5,000 UNIT/ML VIAL SQ SCH ×3 (05:25→22:19)
[2019-04-18 07:50] LABS: Basophils % 0.3 %; Eosinophils # 0.2 K/mcL (0.0-0.6); Eosinophils % 2.5 %; Hematocrit 42.4 % (35.3-44.9); Immature Granulocytes % 0.3 % (0-4); Lymphocytes # 2.5 K/mcL (0.6-4.6); Mean Corpuscular HGB Conc 30.7 g/dL (31.6-35.5); Mean Corpuscular Hemoglobin 27.3 pg (28.0-33.3); Mean Corpuscular Volume 89.1 fL (83.0-100.0); Mean Platelet Volume 11.4 fL (9.4-12.4); Monocytes # 0.5 K/mcL (0.0-1.3); Monocytes % 5.4 %; Platelet Count 285 K/mcL (140-400); Red Blood Count 4.76 M/mcL (3.82-4.97); Red Cell Distribution Width 14.1 % (11.5-14.5); Segmented Neutrophils % 64.5 %
[2019-04-18] MEDS: Insulin LISPRO 300 UNITS/3 ML VIAL SQ SCH ×3 (08:30→18:49)
[2019-04-18] MEDS: Gabapentin 300 MG CAPSULE PO SCH ×4 (09:57→22:13)
[2019-04-18] MEDS: Aspirin Enteric Coated 81 MG Tablet PO SCH (09:57)
[2019-04-18] MEDS: Ascorbic Acid 500 MG TABLET PO SCH (09:58)
[2019-04-18] MEDS: *HR* OxyCODONE/APAP 10/325 TABLET PO SCH ×4 (09:58→22:52)
[2019-04-18] MEDS: Nystatin POWDER 30 GM BOTTLE TP SCH ×2 (10:00→22:15)
[2019-04-18 10:16] LABS: BUN/Creatinine Ratio 70 (6-26); Blood Urea Nitrogen 73 mg/dL (8-23); Calcium 9.1 mg/dL (8.6-10.3); Carbon Dioxide 37 mEq/L (23-29); Chloride 90 mEq/L (98-107); Glucose 135 mg/dL (70-105); Osmolality,Calculated 304 (280-300); Potassium 3.1 mEq/L (3.5-5.1); Sodium 135 mEq/L (136-145); eGFR For Non-African Americans 52 (> 60)
--- NOTE | 2019-04-18 11:53 | Internal Med Progress Note ---
Hospitalist Progress Note - Encounter Date of Encounter: 04/18/19 Time of Encounter: 09:52 - Subjective Interval History: Patient seen and examined this morning with severe no acute overnight events. Denies new complaints. Urinating well. Afebrile and hemodynamically stable. Denies any chest pain abdominal pain constipation diarrhea. - Exam Vitals: Temp Pulse Resp BP Pulse Ox 97.7 F 78 17 117/63 95 04/18/19 04:40 04/18/19 11:24 04/18/19 11:24 04/18/19 11:24 04/18/19 11:24 Exam: General: In no acute distress. Respiratory exam: CTAB. no accessory muscle use, rales, rhonchi, wheezes Cardiovascular exam: RRR, +S1, +S2. no murmur, gallop, rubs. GI/Abdominal exam: Non-tender, Non-distended, normal bowel sounds, soft, no peritoneal signs. Extremities exam: trace pedal edema, pulses palpable in b/l lower extremities. has parasthesia on b/l LE with pain from gentle touching. Neurological exam: CN II-XII intact, AO X3, no focal deficits. Skin exam: No skin rash - Assessment and Plan (1) UTI (urinary tract infection) Current Visit: No Status: Acute (2) COPD (chronic obstructive pulmonary disease) Current Visit: No Status: Chronic (3) DVT prophylaxis Current Visit: No Status: Acute (4) CAD (coronary artery disease) Current Visit: No Status: Chronic (5) Diabetes Current Visit: No Status: Acute (6) Acute kidney injury Current Visit: Yes Status: Acute (7) Acute encephalopathy Current Visit: Yes Status: Resolved (8) Elevated troponin Current Visit: Yes Status: Acute - Summary of Assessment and Plan Summary of Assessment and Plan: Assessment MAGED Acute encephlopathy UTI elevated troponin hypokalemia DVT prophylaxis Diabetes CAD HLD HTN COPD hypothyrodism Depression Plan - MAGED resolved. Will stop IVF. No evidence of obstruction on CT. Cont to hold home bumetanide, metolazone, lasix and valsartan for now. Renal function improving. Nephrology signed off. No HD indicated - AMS resolved likely uremic encephalopathy - blood culture NGTD. urine culture without growth. CT without pyelonephritis. - Troponin elevated with prior CAD history along with MAGED. Now downtrending. Likely demand ischemia. Continue aspirin and statin and beta marii. Finish empiric antibiotics for UTI for 3 days. - c/w prn bronchodilators, SSI and accucheck - Patient from assisted facility. Appears to have deconditioning which may have contributed her to access fluid/food. Will get PT/OT evaluation. - Time Spent with Patient Total time spent is greater than 50% in coordination of care (as documented) at patient's floor/unit and/or counseling patient: Internal Medicine: Result - Labs CBC & Chem 7: 04/18/19 07:36 04/18/19 07:36 Labs: Short CBC 04/18/19 Range/Units 07:36 WBC 9.3 (4.3-11.1) K/mcL Hgb 13.0 (11.5-15.4) g/dL Hct 42.4 (35.3-44.9) % Plt Count 285 (140-400) K/mcL Neutrophils # 6.0 (1.6-8.9) K/mcL BMP 04/18/19 07:36 Sodium 135 L Potassium 3.1 L Chloride 90 L Carbon Dioxide 37 H BUN 73 H Creatinine 1.05 Glucose 135 H Calcium 9.1 - ABG Interpretation ABG results: ABG ABG pH 7.42 pH Units (7.32-7.45) 04/17/19 04:43 ABG pCO2 54 mmHg (35-45) H 04/17/19 04:43 ABG pO2 55 mmHg (85-104) L 04/17/19 04:43 ABG O2 Saturation 88 % (95-98) L 04/17/19 04:43 PT/INR, D-dimer PT 11.7 Seconds (9.4-12.1) 04/17/19 06:48 Consult Discharge Plan - Plan Referrals: Rafa Segovia Jr, MD [Primary Care Provider] - (1) UTI (urinary tract infection) Qualifiers: Urinary tract infection type: acute cystitis Hematuria presence: without hematuria Qualified Code(s): N30.00 - Acute cystitis without hematuria (2) COPD (chronic obstructive pulmonary disease) Qualifiers: COPD type: chronic bronchitis Chronic bronchitis type: simple Qualified Code(s): J41.0 - Simple chronic bronchitis (4) CAD (coronary artery disease) Qualifiers: Coronary Disease-Associated Artery/Lesion type: [place] artery [place] vs. tra nsplanted heart: [place] heart Associated angina: without angina Qualified Code(s): I25.10 - Atherosclerotic heart disease of [place] coronary artery without angina pectoris (5) Diabetes Qualifiers: Diabetes mellitus type: type 2 Diabetes mellitus longterm insulin use: with longterm use Diabetes mellitus complication status: with hyperglycemia Qualified Code(s): E11.65 - Type 2 diabetes mellitus with hyperglycemia; Z79.4 - prison (current) use of insulin
--- NOTE | 2019-04-18 11:56 | Nephrology Progress Note ---
Date of Encounter: 04/18/19 Time of Encounter: 11:30 - Assessment and Plan (1) Acute kidney injury Status: Acute Prerenal acute kidney injury, nicely improving with IV fluids. The hyponatremia is improving as well. Continue to replete the hypokalemia. Agree with antibiotics for the pyelonephritis. Continue to follow a renal protective strategy: Strict I's and O's, daily weigh ts, avoidance of nephrotoxic agents as able, and renal dosing. With her renal function improving essentially back to the normal range, she will not need dialysis at this point. I will politely sign off at this point as well, but please feel free to call or page me with any nephrology questions. (2) Hypokalemia Status: Acute Improving (3) Hyponatremia Status: Acute Improving (4) Pyelonephritis Status: Acute (5) Generalized weakness Status: Acute (6) Hypercapnia Status: Acute (7) HTN (hypertension) Status: Chronic Qualifiers: Hypertension type: essential hypertension Qualified Code(s): I10 - Essential (primary) hypertension (8) Morbid obesity with BMI of 45.0-49.9, adult Status: Chronic Subjective Principal diagnosis: MAGED Interval history: The patient was seen and examined earlier in the day. She did not affirm active nausea, vomiting, or diarrhea to me. Objective - Vital Signs Vital signs: Vital Signs Temp Pulse Resp BP Pulse Ox 04/18/19 11:24 78 17 117/63 95 04/18/19 08:00 82 17 128/83 98 04/18/19 04:40 97.7 F 88 15 119/61 92 04/18/19 00:47 98.7 F 70 16 125/78 96 04/17/19 20:39 98/48 04/17/19 20:29 98.1 F 76 16 95/48 95 04/17/19 15:30 98.1 F 66 18 105/51 Intake and Output 04/17/19 04/18/19 04/18/19 23:59 07:59 15:59 Intake Total 120 / 2600 0 / 0 Output Total 200 / 200 800 / 800 Balance -80 / 2400 -800 / -800 Intake: Oral 120 / 600 0 / 0 Output: Urine 200 / 200 800 / 800 Other: Meal Dinner Percent of Meal Consumed 100% Weight 99.2 kg Blood Glucose* 201 169 Patient Weight 04/18/19 23:59 Weight 99.2 kg - General Appearance Exam: General appearance: appears started age and in no acute distress, obese EENT: mucous membranes moist Neck: no JVD Respiratory: clear Cardiology: no murmurs, no rub, no gallops, no edema, regular rate, regular rhythm, normal S1, normal S2 Gastrointestinal: normoactive bowel sounds, tenderness (Suprapubic pain b/l with deep palpation), no guarding, no organomegaly, no masses Integumentary: no rash, warm and dry Neurologic: no focal deficit, alert and oriented x3 Musculoskeletal: no deformities, no erythema, no cyanosis, no clubbing Psychiatric: mood/affect appropriate, cooperative - Lab 04/18/19 07:36 04/19/19 06:36 Most recent lab results 04/18/19 07:36 Calcium 9.1 Consult Discharge Plan - Plan Instructions: Oxycodone/Acetaminophen (By mouth), Gabapentin (By mouth), Urinary Tract Infection in Women (DC), Hypothyroidism (DC), Chronic Hypertension (DC) Referrals: Rafa Segovia Jr, MD [Primary Care Provider] -
[2019-04-18] MEDS: Venlafaxine XR (24 HR) 150 MG CAP.ER.24H PO SCH (13:00)
[2019-04-18] MEDS: cefTRIAXone 1,000 MG in Water for inj. (sterile) 20 ML 10 ML IVPB SCH (20:52)
[2019-04-19] MEDS: *HR* OxyCODONE/APAP 10/325 TABLET PO SCH ×5 (03:05→16:53)
[2019-04-19 05:22] LABS: Sodium, Urine 72.2 mEq/L
[2019-04-19] MEDS: *HR* Heparin 5,000 UNIT/ML VIAL SQ SCH ×2 (05:54→12:16)
[2019-04-19 07:17] LABS: BUN/Creatinine Ratio 68 (6-26); Blood Urea Nitrogen 45 mg/dL (8-23); Calcium 9.3 mg/dL (8.6-10.3); Carbon Dioxide 39 mEq/L (23-29); Chloride 92 mEq/L (98-107); Glucose 137 mg/dL (70-105); Osmolality,Calculated 304 (280-300); Potassium 2.8 mEq/L (3.5-5.1); Sodium 140 mEq/L (136-145); eGFR For Non-African Americans > 60 (> 60)
[2019-04-19] MEDS: Ascorbic Acid 500 MG TABLET PO SCH (07:32)
[2019-04-19] MEDS: Aspirin Enteric Coated 81 MG Tablet PO SCH (07:32)
[2019-04-19] MEDS: Insulin LISPRO 300 UNITS/3 ML VIAL SQ SCH ×2 (07:51→12:05)
[2019-04-19] MEDS: Gabapentin 300 MG CAPSULE PO SCH ×2 (07:58→12:16)
[2019-04-19] MEDS: Nystatin POWDER 30 GM BOTTLE TP SCH (08:24)
[2019-04-19 11:54] VITALS: BP 133/65
[2019-04-19] MEDS: Venlafaxine XR (24 HR) 150 MG CAP.ER.24H PO SCH (12:16)
--- NOTE | 2019-04-19 14:38 | Discharge Summary ---
- NOTES TO OUTPATIENT PROVIDER Notes to Outpatient Provider: All diuretics are held on discharge. Patient will need BMP checked within 1-2 weeks. Orders not resulted at time of discharge: Pending orders 04/16/19 18:50 Culture,Blood [BC] Stat Date of Encounter: 04/19/19 Time of Encounter: 14:28 - Discharge Diagnosis (1) UTI (urinary tract infection) Priority: Primary Status: Acute Qualifiers: Urinary tract infection type: acute cystitis Hematuria presence: without hematuria Qualified Code(s): N30.00 - Acute cystitis without hematuria (2) COPD (chronic obstructive pulmonary disease) Priority: Secondary Status: Chronic Qualifiers: COPD type: chronic bronchitis Chronic bronchitis type: simple Qualified Code(s): J41.0 - Simple chronic bronchitis (3) DVT prophylaxis Priority: Secondary Status: Acute (4) CAD (coronary artery disease) Priority: Secondary Status: Chronic Qualifiers: Coronary Disease-Associated Artery/Lesion type: [place] artery [place] vs. transplanted heart: [place] heart Associated angina: without angina Qualified Code(s): I25.10 - Atherosclerotic heart disease of [place] coronary artery without angina pectoris (5) Diabetes Priority: Secondary Status: Acute Qualifiers: Diabetes mellitus type: type 2 Diabetes mellitus long goods drier insulin use: with long goods drier use Diabetes mellitus complication status: with hyperglycemia Qualified Code(s): E11.65 - Type 2 diabetes mellitus with hyperglycemia; Z79.4 - dedicated intermodal truck driver (current) use of insulin (6) Acute kidney injury Priority: Primary Status: Acute (7) Acute encephalopathy Priority: Primary Status: Resolved (8) Elevated troponin Priority: Primary Status: Acute (9) Morbid obesity with BMI of 40.0-44.9, adult Priority: Secondary Status: Acute Hospital course: Ms. Colbert is a 73 year old female with past medical history of COPD, coronary artery disease, diabetes, hypertension, hyperlipidemia, peripheral neuropathy came in from assisted living facility with altered mental status, hypoxia and hypotension. Patient was found to have significant MAGED, elevated troponin and signs of UTI. Patient was started on empiric antibiotics. Patient home diuretics including metolazone, Bumex, Lasix were all held. Patient was given 3 L of IV fluids in ER. Nephrology was consulted. Patient troponin were likely from demand and due to acute kidney injury. Patient denied any chest pain during hospitalization. No EKG changes were observed. Patient likely had MAGED from decreased by mouth intake and being on Lasix and juancarlos inhibitors. Patient's renal function improved quickly with IV fluids. Potassium were repleted as needed. Patient's mentation improved. Patient likely had uremic encephalopathy however patient also on narcotics and gabapentin which might have contributed as well. Patient was evaluated by physical therapy recommended SNF placement. Arrangements were made by social welfare clerk today. Patient otherwise stable to be discharged to SNF for physical therapy. Patient finished antibiotic therapy. Patient otherwise stable to be discharged to SNF. All diuretics and potassium supplementation or held on discharge. Discharge discussed with: patient, nurse, social work - Time Spent with Patient Total time spent providing and/or coordinating discharge services: Time spent: Greater than 30 minutes (40) - Discharge Medications Prescriptions: Continued Aspirin Enteric Coated [Aspirin EC] 81 mg PO DAILY amLODIPine [Norvasc] 5 mg PO DAILY Ascorbic Acid [Vitamin C with Izabela Hips] 500 mg PO DAILY glipiZIDE [Glipizide] 10 mg PO DAILY Insulin Glargine,Hum.rec.anlog [Radha Elizalde U-100] 55 unit SQ HS Levothyroxine Sodium 50 mcg PO DAILY Metoprolol [Lopressor] 25 mg PO BID Nitroglycerin [Nitrostat] 0.4 mg SL AD PRN PRN Reason: Chest Pain Nystatin POWDER [Nystop] 1 appl TP BID Omeprazole [PriLOSEC] 20 mg PO DAILY Raloxifene [Evista] 60 mg PO DAILY Simvastatin [Zocor] 20 mg PO HS Valsartan [Diovan] 80 mg PO DAILY Venlafaxine HCl [Venlafaxine HCl ER] 150 mg PO DAILY@1200 OxyCODONE/APAP 10/325 [Percocet 10/325 MG] 1 each PO Q4HR 3 Days #12 tablet Gabapentin 600 mg PO QID 3 Days #12 tablet Discontinued Bumetanide 4 mg PO DAILY Furosemide [Lasix] 40 mg PO TID LORazepam [Ativan] 0.5 mg PO QID metOLazone [Zaroxolyn] 5 mg PO DAILY Potassium Chloride [Klor-Con 10] 10 meq PO QID Home Medications: Aspirin Enteric Coated [Aspirin EC] 81 mg PO DAILY 11/17/15 [History] Ascorbic Acid [Vitamin C with Izabela Hips] 500 mg PO DAILY 04/16/19 [History] Insulin Glargine,Hum.rec.anlog [Basaglar Yaniikpen U-100] 55 unit SQ HS 04/16/19 [History] Levothyroxine Sodium 50 mcg PO DAILY 04/16/19 [History] Metoprolol [Lopressor] 25 mg PO BID 04/16/19 [History] Nitroglycerin [Nitrostat] 0.4 mg SL AD PRN 04/16/19 [History] Nystatin POWDER [Nystop] 1 appl TP BID 04/16/19 [History] Omeprazole [PriLOSEC] 20 mg PO DAILY 04/16/19 [History] Raloxifene [Evista] 60 mg PO DAILY 04/16/19 [History] Simvastatin [Zocor] 20 mg PO HS 04/16/19 [History] Valsartan [Diovan] 80 mg PO DAILY 04/16/19 [History] Venlafaxine HCl [Venlafaxine HCl ER] 150 mg PO DAILY@1200 04/16/19 [History] amLODIPine [Norvasc] 5 mg PO DAILY 04/16/19 [History] glipiZIDE [Glipizide] 10 mg PO DAILY 04/16/19 [History] Gabapentin 600 mg PO QID 3 Days #12 tablet 04/19/19 [Rx] OxyCODONE/APAP 10/325 [Percocet 10/325 MG] 1 each PO Q4HR 3 Days #12 tablet 04/19/19 [Rx] Allergies/Adverse Reactions: Allergy/AdvReac Type Severity Reaction Status Date / Time latex Allergy Rash Verified 10/18/16 12:13 Date of admission: 04/16/19 22:16 Primary care physician: Rafa Segovia Jr, MD Consults: 04/16/19 20:02 Consult to Nephrology [CONS] Stat Consulting Provider: Kid[facility]/UNA/YOU/MARCIA Reason for Consult: maged Time Notified: 20:02 Call Completed: Yes 04/18/19 08:05 Consult to Occupational Therapy [CONS] Routine Comment: Evaluate, develop and implement POC Reason for Consult: POSSIBLE REHAB PLACEMENT Does patient have active BEDREST order?: No Is patient medically & hemodynamically stable?: Yes Patient assessed for mobility or mobilized this visit?: No Consult to Physical Therapy [CONS] Routine Comment: Evaluate, develop and implement POC Reason for Consult: POSSIBLE REHAB PLACEMENT Does patient have active BEDREST order?: No Is patient medically & hemodynamically stable?: Yes Patient assessed for mobility or mobilized this visit?: No 04/18/19 12:52 Consult to Php Wordpress Developer [CONS] Routine Reason for SW Consult: Possible rehab at d/c (Carole lisa) Discharging clinician: Tash Sloan - Constitutional Vitals: Temp Pulse Resp BP Pulse Ox 98.1 F 73 18 133/65 95 04/19/19 04:42 04/19/19 11:50 04/19/19 11:50 04/19/19 11:50 04/19/19 11:50 Exam: General: In no acute distress. Respiratory exam: CTAB. no accessory muscle use, rales, rhonchi, wheezes Cardiovascular exam: RRR, +S1, +S2. no murmur, gallop, rubs. GI/Abdominal exam: Non-tender, Non-distended, normal bowel sounds, soft, no peritoneal signs. Extremities exam: trace pedal edema, pulses palpable in b/l lower extremities. has parasthesia on b/l LE with pain from gentle touching. Neurological exam: CN II-XII intact, AO X3, no focal deficits. Skin exam: No skin rash - Patient Status Disposition: Transfer SNF Condition: Fair - Discharge Instructions Follow Up With: Rafa Segovia Jr, MD [Primary Care Provider] - - Diet and Activity Activity: as per physical therapy, increase activity as tolerated
--- NOTE | 2019-04-19 14:46 | Physician Discharge Referral ---
ExtendedCare Referral Info Institutional Level of Care: Skilled - Diagnosis (1) UTI (urinary tract infection) Status: Acute (2) COPD (chronic obstructive pulmonary disease) Status: Chronic (3) DVT prophylaxis Status: Acute (4) CAD (coronary artery disease) Status: Chronic (5) Diabetes Status: Acute (6) Acute kidney injury Status: Acute (7) Acute encephalopathy Status: Resolved (8) Elevated troponin Status: Acute (9) Morbid obesity with BMI of 40.0-44.9, adult Status: Acute - Transfer Medications Prescriptions: OxyCODONE/APAP 10/325 [Percocet 10/325 MG] 1 each PO Q4HR 3 Days #12 tablet Gabapentin 600 mg PO QID 3 Days #12 tablet Home Medications: Aspirin Enteric Coated [Aspirin EC] 81 mg PO DAILY 11/17/15 [History] Ascorbic Acid [Vitamin C with Izabela Hips] 500 mg PO DAILY 04/16/19 [History] Insulin Glargine,Hum.rec.anlog [Basaglar Kwikpen U-100] 55 unit SQ HS 04/16/19 [History] Levothyroxine Sodium 50 mcg PO DAILY 04/16/19 [History] Metoprolol [Lopressor] 25 mg PO BID 04/16/19 [History] Nitroglycerin [Nitrostat] 0.4 mg SL AD PRN 04/16/19 [History] Nystatin POWDER [Nystop] 1 appl TP BID 04/16/19 [History] Omeprazole [PriLOSEC] 20 mg PO DAILY 04/16/19 [History] Raloxifene [Evista] 60 mg PO DAILY 04/16/19 [History] Simvastatin [Zocor] 20 mg PO HS 04/16/19 [History] Valsartan [Diovan] 80 mg PO DAILY 04/16/19 [History] Venlafaxine HCl [Venlafaxine HCl ER] 150 mg PO DAILY@1200 04/16/19 [History] amLODIPine [Norvasc] 5 mg PO DAILY 04/16/19 [History] glipiZIDE [Glipizide] 10 mg PO DAILY 04/16/19 [History] Gabapentin 600 mg PO QID 3 Days #12 tablet 04/19/19 [Rx] OxyCODONE/APAP 10/325 [Percocet 10/325 MG] 1 each PO Q4HR 3 Days #12 tablet 04/19/19 [Rx] Allergies/Adverse Reactions: Allergy/AdvReac Type Severity Reaction Status Date / Time latex Allergy Rash Verified 10/18/16 12:13 - Respiratory Orders Smoking Cessation: Smoking cessation has been advised. For more information, call the [place] Tobacco Quit Line at 1-247-SXTLNOW. CERTIFICATION: I certify that the transfer of the above named patient to an Extended Care Facility is necessary for the continuing treatment of the diagnosis listed. The above information is true and accurate reflection of patient's current condition. Confidential - Redisclosure prohibited without a patient's written consent.
== END 2019-04-19 17:22 | DRG 683 ==
LOC: EMEROOARM 17:54 → 2NENU 17:54 → SUATTDRO 22:16 → 2NENU 22:44
PROVIDERS: ADMIT Internal Medicine; ATTEND Internal Medicine